=== PATIENT | female | born 1970 | race Caucasian/White ===

== ENCOUNTER → 2018-08-11 17:26 | Outpatient (CLI) | payer MEDICAID | END | disposition home or self-care (01) | LOC: D.LABREF 17:26 | DX: R31.9 Hematuria, unspecified (principal) ==

== ENCOUNTER → 2018-09-01 08:26 | Outpatient (CLI) | payer MEDICAID | END | disposition home or self-care (01) | LOC: D.CT 08:26 | DX: R31.21 Asymptomatic microscopic hematuria (principal) ==

== ENCOUNTER 2018-09-28 05:26 | Day surgery (SDC) | payer MEDICAID ==
[~2018-09-28] VITALS: Ht 172.7 cm; Wt 92.1 kg
[~2018-09-28 05:26] MED LIST: HYDROCODON-ACE1 EA10 PO; MOBIC7.5 MG PO; PROTONIX40 MG PO; SKELAXIN800 MG PO
[2018-09-28 05:47] LABS: HEMATOCRIT 43.3 % (36.0-48.0); HEMOGLOBIN 14.8 g/dL (12-16); MCH 31.8 pg (26.0-34.0); MCHC 34.2 g/dL (31.0-37.0); MCV 93.1 fL (80.0-100.0); MEAN PLATELET VOLUME 10.9 fL (7.4-10.4); RBC 4.65 10x6/uL (4.00-5.40); RDW 13.5 % (11.5-14.5); WBC 7.8 10x3/uL (4.8-10.8)
[2018-09-28 06:29] VITALS: BP 131/93; Ht 172.7 cm; Wt 92.1 kg
--- NOTE | 2018-09-28 08:29 | OP ---
PATIENT NAME: ALAINA ESPINOZA MEDICAL RECORD: [id number] :66 LOCATION:D[facility]OPS ADMISSION DATE: SURGEON: ANURAG ÁLVAREZ MD DATE OF OPERATION: 09/28/2018 SURGEON: Anurag Álvarez MD ANESTHESIA: TIVA by Dr. Arnie Tavarez. DIAGNOSES: Microscopic hematuria, interstitial cystitis. PROCEDURES: Cystoscopy and hydrodistention, intravesical Rimso instillation. FINDINGS: Diffusely inflamed bladder with no bladder tumors. Single ureteral orifices bilaterally. BLOOD LOSS: None. CLINICAL HISTORY: This is a 48-year-old female, who has a complaint of microscopic hematuria as well as urinary urgency and frequency and suprapubic pain. Urine cytology was negative for tumor cells. CT scan of the abdomen and pelvis was normal. She did have colonic diverticulosis without diverticulitis. She comes now to have cystoscopy. Her symptoms are suggestive of interstitial cystitis and if inflammation is seen, we will proceed with treatment including hydrodistention and intravesical Rimso instillation. She is not allergic to any medications. 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 DESCRIPTION OF PROCEDURE: The patient was given IV sedation. She was then placed into dorsal lithotomy position and prepped and draped. A 21-Lithuanian cystoscope with 30-degree lens was used for visualization. Findings are as outlined above. I then proceeded to fill the bladder with at least 500 mL of normal saline and hold the volume in for at least 1 minute. The bladder was then drained through the scope and the scope was removed. A 16-Lithuanian red rubber catheter was inserted into the bladder and through the lumen of catheter, the 50 mL of Rimso solution was instilled into the bladder. The catheter was then removed, leaving the Rimso solution in the bladder. The patient will hold the Rimso solution for 15 minutes and then void it out. She will be seen in 2 weeks' time for further treatments if the first treatment has not relieved her symptoms. 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
--- NOTE | 2018-09-28 08:47 | NUR ---
0829 AM PATIENT VOIDED
== END 2018-09-28 09:20 | disposition home or self-care (01) ==
LOC: D.OPS 05:26
PROVIDERS: ATTEND Urology
DX: N30.11 Interstitial cystitis (chronic) with hematuria (principal); Z01.812 Encounter for preprocedural laboratory examination